=== PATIENT | female | born 1970 | race Caucasian/White ===

== ENCOUNTER 2017-02-10 21:15 | Inpatient (IN) | payer OTHER ==
[~2017-02-10] VITALS: Ht 160 cm; Wt 76.0 kg
[2017-02-10 22:00] LABS: HEMATOCRIT 44.9 % (36.0-46.0); MCH 30.7 PG (29.0-34.0); MCHC 32.5 G/DL (30.0-36.0); MCV 94.5 FL (83-99); MEAN PLAT.VOLUME 9.8 uM^3 (9.5-12.4); PLATELET COUNT 303 K/uL (156-360); RBC DIS.WIDTH-CV 12.1 % (11.8-14.6); RBC DIS.WIDTH-SD 42.1 % (39-53); RED BLOOD COUNT 4.75 M/uL (3.80-5.20)
[2017-02-10 22:09] LABS: CHLORIDE 104 mEq/L (99-109); POTASSIUM 4.3 mEq/L (3.7-5.4); SODIUM 139 mEq/L (136-147)
[2017-02-10 22:11] LABS: GLUCOSE 125 mg/dL (70-99)
[2017-02-10 22:12] LABS: ANION GAP 10 MEQ/L (2-14)
[2017-02-10 22:13] LABS: TOTAL BILIRUBIN 1.6 mg/dL (0.0-1.0)
[2017-02-10 22:14] LABS: ALKALINE PHOSPHATASE 75 IU/L (3-129)
[2017-02-10 22:15] LABS: GFR ESTIMATE (CALCULATED) > 59 mL/min/
[2017-02-10 22:16] LABS: UREA NITROGEN (BUN) 16 mg/dL (9-23)
[2017-02-10 22:24] LABS: QUANTITATIVE HCG < 4.0 MIU/ML
[2017-02-10 23:54] LABS: ADD MIUA? YES; BILIRUBIN NEGATIVE; BLOOD NEGATIVE; COLOR AMBER ((YELLOW)); GLUCOSE (STRIP) NEGATIVE; KETONES NEGATIVE; LEUKOCYTES NEGATIVE; NITRITE NEGATIVE; PROTEIN (STRIP) NEGATIVE; SPECIFIC GRAVITY 1.024 (1.000-1.030); UROBILINOGEN 0.2 MG/DL (0.2-1.0)
[2017-02-11 00:04] LABS: BACTERIA RARE /HPF; EPITHELIAL CELLS RARE /HPF; MUCUS TRACE /LPF; UCUL ADDED? NO; WHITE BLOOD CELLS 0-5 /HPF (0-5)
[2017-02-11 04:11] VITALS: BP 144/81
[2017-02-11 06:57] LABS: BASOPHIL COUNT 0.1 K/uL (0-0.1); EOSINOPHIL COUNT 0.1 K/uL (0-0.3); IMMATURE GRANULOCYTE (%) 0.3 % (0.0-0.7); INSTRUMENT ABS NEUTROPHIL CT 4.4 K/uL; LYMPHOCYTE COUNT 1.7 K/uL (1.0-2.8); MCH 30.6 PG (29.0-34.0); MCV 95.7 FL (83-99); MEAN PLAT.VOLUME 9.8 uM^3 (9.5-12.4); MONOCYTE (%) 10.1 % (3-12); MONOCYTE COUNT 0.7 K/uL (0-0.8); NEUTROPHIL (%) 63.2 % (45-76); NEUTROPHIL COUNT 4.4 K/uL (1.8-6.4); PLATELET COUNT 228 K/uL (156-360); RBC DIS.WIDTH-CV 12.2 % (11.8-14.6); RBC DIS.WIDTH-SD 42.9 % (39-53); RED BLOOD COUNT 4.18 M/uL (3.80-5.20); WHITE BLOOD COUNT 6.9 K/uL (4.1-10.2)
[2017-02-11 07:22] LABS: ALKALINE PHOSPHATASE 62 IU/L (3-129); ANION GAP 8 MEQ/L (2-14); CHLORIDE 104 MEQ/L (99-109); GFR ESTIMATE (CALCULATED) > 59 mL/min/; GLUCOSE 104 mg/dL (70-99); POTASSIUM 3.9 MEQ/L (3.7-5.4); SAMPLE HEMOLYSIS CHECK 0; SAMPLE ICTERIC CHECK 0; SAMPLE LIPEMIA CHECK 0; SODIUM 139 MEQ/L (136-147); TOTAL BILIRUBIN 1.1 MG/DL (0.0-1.0); UREA NITROGEN (BUN) 13 mg/dL (9-23)
[2017-02-11 08:00] VITALS: BP 106/67
[2017-02-11 11:30] VITALS: BP 130/71
[2017-02-11] MEDS ORDERED: LEVO-T100 MCG PO (12:17)
[2017-02-11] MEDS ORDERED: MINASTRIN 24 F1 EACH PO (12:22)
[2017-02-11 18:00] VITALS: BP 136/81
[2017-02-11 20:05] VITALS: BP 146/78
[2017-02-11 23:32] VITALS: BP 120/73
[2017-02-12 03:47] VITALS: BP 112/72
[2017-02-12 07:12] LABS: HEMATOCRIT 40.6 % (36.0-46.0); MCH 30.9 PG (29.0-34.0); MCHC 32.8 G/DL (30.0-36.0); MCV 94.4 FL (83-99); MEAN PLAT.VOLUME 9.7 uM^3 (9.5-12.4); PLATELET COUNT 234 K/uL (156-360); RBC DIS.WIDTH-CV 12.2 % (11.8-14.6); RBC DIS.WIDTH-SD 42.5 % (39-53)
[2017-02-12 07:49] LABS: ALKALINE PHOSPHATASE 82 IU/L (3-129); ANION GAP 9 MEQ/L (2-14); CHLORIDE 102 MEQ/L (99-109); GFR ESTIMATE (CALCULATED) > 59 mL/min/; GLUCOSE 114 mg/dL (70-99); POTASSIUM 3.8 MEQ/L (3.7-5.4); SAMPLE HEMOLYSIS CHECK 0; SAMPLE ICTERIC CHECK 0; SAMPLE LIPEMIA CHECK 0; SODIUM 138 MEQ/L (136-147); UREA NITROGEN (BUN) 6 mg/dL (9-23)
[2017-02-12 07:51] LABS: TOTAL BILIRUBIN 2.2 MG/DL (0.0-1.0)
[2017-02-12 08:00] VITALS: BP 114/67
[2017-02-12 12:00] VITALS: BP 128/85
[2017-02-12 16:00] VITALS: BP 129/72
[2017-02-12 23:36] VITALS: BP 108/64
[2017-02-13 06:51] LABS: HEMATOCRIT 46.5 % (36.0-46.0); MCH 30.6 PG (29.0-34.0); MCHC 32.3 G/DL (30.0-36.0); MCV 94.9 FL (83-99); PLATELET COUNT 264 K/uL (156-360); RBC DIS.WIDTH-CV 12.4 % (11.8-14.6); RBC DIS.WIDTH-SD 43.1 % (39-53)
[2017-02-13 07:19] LABS: ANION GAP 9 MEQ/L (2-14); CHLORIDE 99 MEQ/L (99-109); GFR ESTIMATE (CALCULATED) > 59 mL/min/; GLUCOSE 113 mg/dL (70-99); POTASSIUM 4.4 MEQ/L (3.7-5.4); SAMPLE HEMOLYSIS CHECK 0; SAMPLE ICTERIC CHECK 1; SAMPLE LIPEMIA CHECK 0; SODIUM 138 MEQ/L (136-147); UREA NITROGEN (BUN) 7 mg/dL (9-23)
[2017-02-13 07:22] LABS: TOTAL BILIRUBIN 4.4 MG/DL (0.0-1.0)
[2017-02-13 07:23] LABS: ALKALINE PHOSPHATASE 151 IU/L (3-129)
[2017-02-13 07:34] VITALS: BP 109/71
[2017-02-13 11:27] VITALS: BP 118/63
[2017-02-13 15:38] VITALS: BP 113/53
[2017-02-13 23:31] VITALS: BP 110/69
[2017-02-14 07:11] LABS: HEMATOCRIT 43.5 % (36.0-46.0); MCH 30.6 PG (29.0-34.0); MCHC 32.2 G/DL (30.0-36.0); MEAN PLAT.VOLUME 9.9 uM^3 (9.5-12.4); PLATELET COUNT 224 K/uL (156-360); RBC DIS.WIDTH-CV 12.7 % (11.8-14.6); RBC DIS.WIDTH-SD 44.2 % (39-53); RED BLOOD COUNT 4.58 M/uL (3.80-5.20); WHITE BLOOD COUNT 4.4 K/uL (4.1-10.2)
[2017-02-14 07:22] LABS: INTER. NORMALIZED RATIO 1.1; PTT 29.2 (25-32)
[2017-02-14 07:23] VITALS: BP 112/69
[2017-02-14 07:39] LABS: ALKALINE PHOSPHATASE 155 IU/L (3-129); ANION GAP 8 MEQ/L (2-14); CHLORIDE 100 MEQ/L (99-109); GFR ESTIMATE (CALCULATED) > 59 mL/min/; GLUCOSE 114 mg/dL (70-99); POTASSIUM 4.1 MEQ/L (3.7-5.4); SAMPLE HEMOLYSIS CHECK 0; SAMPLE ICTERIC CHECK 1; SAMPLE LIPEMIA CHECK 0; SODIUM 136 MEQ/L (136-147); TOTAL BILIRUBIN 3.9 MG/DL (0.0-1.0); UREA NITROGEN (BUN) 5 mg/dL (9-23)
[2017-02-14 08:46] LABS: POINT-OF-CARE METER ID UU14162508
[2017-02-14] MEDS ORDERED: Tylenol Extra Streng PO (15:25)
[2017-02-14] MEDS ORDERED: IBUPROFEN400 MG PO (15:25)
[2017-02-14] MEDS ORDERED: HYDROCODON-ACE1 EAC7 PO (15:25)
[2017-02-14] MEDS ORDERED: CIPRO500 MG PO (15:29)
[2017-02-14 15:36] VITALS: BP 107/68
== END 2017-02-14 18:10 | disposition home or self-care (01) | DRG 419 ==
LOC: EME 21:15 → 2EASTP 02-11 01:00 → EDOF 02-11 01:00 → 2EASTP 02-11 03:11
PROVIDERS: Surgery
PROC: 0FT44ZZ Resection of Gallbladder, Percutaneous Endoscopic Approach (ICD-10-PCS; principal; 2017-02-11)
DX: K80.12 Calculus of gallbladder with acute and chronic cholecystitis without obstruction (principal); K83.8 Other specified diseases of biliary tract; R94.5 Abnormal results of liver function studies; R60.9 Edema, unspecified; K83.4 Spasm of sphincter of Oddi; E03.9 Hypothyroidism, unspecified; R51 Headache; R11.0 Nausea
CPT/HCPCS: 74181; 76705; 80053; 81003; 82948; 84702; 85025; 85027; 85610; 85730; 88304; 93005; 99281; 99285; J1170; J1650; J2250; J2270; J2405; J3010; J7030